=== PATIENT | female | born 1975 | race Caucasian/White ===

== ENCOUNTER 2020-05-24 00:24 | Outpatient (CLI) | payer OTHER, SELFPAY ==
[2020-05-24 18:52] LABS: SARS-CoV-2 RNA PCR Negative
== END 2020-05-24 00:25 | disposition home or self-care (01) ==
LOC: ANHCOVIDDT 00:24
PROVIDERS: PCP Family Medicine; Visit Provider Surgery Plastic and Reconstructive Surgery
DX: Z01.812 Encounter for preprocedural laboratory examination (principal); Z20.828 Contact with and (suspected) exposure to other viral communicable diseases
CPT/HCPCS: 87635; C9803; U0003

== ENCOUNTER 2020-05-26 08:36 | Day surgery (SDC) | payer OTHER, SELFPAY ==
[2020-05-16 10:49] VITALS: BMI 23.9
[2020-05-26] VITALS (7 sets, daily range): BP systolic 90–101; BP diastolic 54–66; PULSE 65–85; RESP 12–19; TEMP 36.4–36.8; O2SAT 95–100; BMI 24.6
--- NOTE | 2020-05-26 09:34 | WPDHPUPDATE1 ---
History and Physical Update Update Date/Time: 05/26/20 09:34 History and Physical has been reviewed, including an updated exam of the patient. There are NO changes in the patient's condition. Risks, benefits, and alternatives have been discussed and questions answered. Patient agrees to proceed with procedure.
--- NOTE | 2020-05-26 09:43 | WPDANESEPPF ---
Anes - Initial Pre Proc Eval Procedure: Operation Date: 05/26/20 10:30 Proposed Procedures p Bilateral Breast Implant Exchange - Popeye Maddox MD s Bilateral Breast Mastopexy - Popeye Maddox MD Date/Time: 05/26/20 09:43 Surgeon: Popeye Maddox MD Pre Op Diagnosis: History of Breast Implants Patient Data Age: 44 Gender: F Height: 5 ft 4.5 in Weight: 66.2 kg Last Vital Signs Temp 36.6 C 05/26/20 09:09 Pulse 65 05/26/20 09:09 Resp 16 05/26/20 09:09 BP 100/57 L 05/26/20 09:09 Pulse Ox 100 05/26/20 09:09 Allergies Allergy/AdvReac Type Severity Reaction Status Date / Time No Known Allergies Allergy Unknown Verified 05/26/20 09:40 Home Medications Medication Instructions Recorded Confirmed Type docusate sodium 100 mg capsule 100 mg PO DAILY #14 cap 05/11/20 05/16/20 Rx ondansetron HCl 4 mg tablet 4 mg PO Q8H #24 tablet 05/11/20 05/16/20 Rx carisoprodol 350 mg tablet 350 mg PO TID PRN #21 tablet 05/16/20 05/16/20 Rx oxycodone-acetaminophen 5 mg-325 1 tablet PO Q6H PRN #15 tablet 05/16/20 05/16/20 Rx mg tablet Patient hx anesthesia problems: none Family hx anesthesia problems: none PMFSH Past Medical History Medical History Hypotension (arterial) Surgical History Surgical History H/O breast augmentation Tubal ligation status Family History Family History Mother Family history of premature coronary heart disease Family history of hypercholesterolemia Diabetes mellitus Hypertension Patient's mother is in good health Family history of cardiovascular disease Father Family history of coronary artery disease Patient's father is in good health Family history of cardiovascular disease Sibling Patient's brother is in good health Social History Social History Smoking status: Former smoker Second hand tobacco smoke exposure: No Smoking end date: 06/17/01 Additional smoking assessment comments: quit 15 years ago Alcohol intake: never Drinks per week: 2 Substance use: never Substance use type: does not use Living arrangements: with family Gender identity (if verbalized by the patient): Female Spiritual care concerns: No Anes - Eval Final PreProcedure Day of Procedure 05/26/20 09:43 Patient weight: normal Heart: regular rate and rhythm Lungs: clear to auscultation Airway: Mallampati scale class 1 Neurological: alert and oriented Last oral intake: >/= 8 hours ASA classification: I Emergent: no Anesthetic plan: proceed Anesthesia type and monitoring: general LMA and standard monitoring Informed Consent: The patient's anesthetic plan and its attendant risks and benefits were discussed with the patient/family/POA. Questions were solicited and answers provided to the satisfaction of the patient/family/POA.
[2020-05-26] MEDS: LACTATED RINGERS 1,000 ML 30 ML IV CONT ×2 (09:54→13:15)
[2020-05-26] MEDS: SCOPOLAMINE 1.5 MG PATCH TRANSDERM (09:55)
--- NOTE | 2020-05-26 09:57 | P.OP_ITS ---
Procedure Note - Detailed Date of procedure: 05/26/20 Pre-op diagnosis: History of Breast Implants Post-op diagnosis: same Procedure performed: Bilateral implant exchange / Mastopexy Description of procedure: She is here today for bilateral breast implant exchange with mastopexy. Previously and again today the risks, benefits, alternatives were discussed in extensive detail. I wanted her to be very realistic about the risks involved as well as expectations. We discussed aftercare and what to monitor for. Made sure answered all of her questions to her satisfaction today and consent was obtained. Marked in the preoperative holding area with their verification. The patient was taken to the operating room placed supine on the operating table. Anesthesia was provided by anesthesiology. A surgical time-out was taken. We cleansed the skin and 1% lidocaine and 0.25% Marcaine with epinephrine was used anesthetize as a field block. She was prepped and draped in a standard sterile fashion. Tegaderm nipple Joyner were placed. A 15 blade used to make an incision along the vertical incision. Dissection was continued until the implant was identified and removed. I copiously irrigated with 3 L bag of saline solution on TUR tubing. Verified a strict hemostasis. Next the use a triple antibiotic and Betadine containing solution to irrigate the pocket. I washed my gloves with the triple antibiotic and Betadine solution. We washed the implant immediately upon opening it with this solution and only opened it when we needed it. I used implant funnel and no-touch technique. The implant was introduced into the pocket using the funnel. Having verified positioning of the implant this was closed using 2-0 Vicryl. I tailor tacked the breast into place and placed her in a sitting position. Marked out the nipple-areolar complex at 42 mm. Location was based on my preoperative planning, intraoperative measurements and observations which were in full agreement plan. She was placed supine. I de-epithelialized the sup erior pedicle mastopexy. I excised the central keel of tissue. Elevated medial and lateral flaps. I then closed using 2-0 PDS followed by 3-0 strata fix along the IMF and 3-0 Monocryl vertical and around the areola. This followed by a running subcuticular 4-0 Monocryl. Final closure was tissue glue. Fluffs, Barber wrap, and surgical bra were placed. Patient was awoke and taken to PACU without difficulty. All instrument sponge counts were correct at the end of the case. Anesthesia: GLMA Surgeon: Popeye Maddox MD Estimated blood loss (mL): 30 Drains: No Packing: No Pathology: none sent Complications: No immediate complications Condition: stable Disposition: PACU Findings: Bilateral Natrelle Inspira SoftTouch Impalnts 320cc Right: REF SSL-320 SN [id number] Left: REF SSL-320 SN [id number] Invert T, superior pedicle mastopexy
[2020-05-26] MEDS: ceFAZolin SODIUM 2 GM/20 ML SW SYRINGE IV PUSH (10:05)
[2020-05-26] MEDS: LIDO 1%/EPINEPHRINE 1:100,000 20 ML VIAL 30 ML INFILTRATE (10:28)
--- NOTE | 2020-05-26 14:00 | WPDANESPN ---
Anes - Prog Note Post-Op Date/Time: 05/26/20 14:00 Cardiovascular status: normal Respiratory status: normal Airway patency: baseline Mental status: baseline Post-Op hydration status: normal Vital Signs: Last Vital Signs Temp 36.4 C 05/26/20 13:15 Pulse 73 05/26/20 13:51 Resp 19 05/26/20 13:51 BP 95/55 L 05/26/20 13:51 Pulse Ox 96 05/26/20 13:51 Pain Score (VAS): 3/10 Post-procedural complaints: none Patient Feedback: Patient satisfied with anesthetic care and stable for discharge.
[2020-05-26] MEDS: oxyCODONE HCL (*CRX) 5 MG TAB IR PO (14:14)
== END 2020-05-26 14:40 | disposition home or self-care (01) ==
PROVIDERS: PCP Family Medicine; Visit Provider Surgery Plastic and Reconstructive Surgery
PROC: (CPT 19342; principal; 2020-05-26 10:30)
PROC: (CPT 19316; 2020-05-26 10:30)
DX: T85.49XA Other mechanical complication of breast prosthesis and implant, initial encounter (principal)
CPT/HCPCS: 19316; 19325